=== PATIENT | male | born 1990 | race Caucasian/White ===

== ENCOUNTER 2022-02-07 10:07 | Emergency (ER) | payer SELFPAY ==
[~2022-02-07] VITALS: Ht 170.2 cm; Wt 93.2 kg
[2022-02-07 10:10] VITALS: BP 135/90
[2022-02-07] MEDS ORDERED: IBUP-1986 PO (12:12)
== END 2022-02-07 12:38 | disposition home or self-care (01) ==
LOC: ER 10:08
DX: S76.012A Strain of muscle, fascia and tendon of left hip, initial encounter (principal); M76.12 Psoas tendinitis, left hip; Z79.899 Other long term (current) drug therapy; X58.XXXA Exposure to other specified factors, initial encounter; Y93.89 Activity, other specified; Y92.89 Other specified places as the place of occurrence of the external cause
CPT/HCPCS: 73502; 99283